=== PATIENT | male | born 1980 | race Hispanic/Latino ===

== ENCOUNTER 2017-06-01 18:54 | Emergency (ER) | payer OTHER ==
[~2017-06-01] VITALS: Ht 170.2 cm; Wt 115.9 kg
[2017-06-01 19:12] VITALS: BP 165/81; PULSE 78; RESP 22; O2SAT 96
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
[2017-06-01 20:52] VITALS: BP 142/96; PULSE 69; RESP 20; O2SAT 99
[2017-06-01] MEDS ORDERED: TRAM50TA2 PO (21:02)
== END 2017-06-01 21:12 | disposition home or self-care (01) ==
LOC: SED 18:54
DX: S23.41XA Sprain of ribs, initial encounter (principal); S16.1XXA Strain of muscle, fascia and tendon at neck level, initial encounter; S20.212A Contusion of left front wall of thorax, initial encounter; V43.62XA Car passenger injured in collision with other type car in traffic accident, initial encounter; Y93.89 Activity, other specified; Y92.410 Unspecified street and highway as the place of occurrence of the external cause; Y99.8 Other external cause status; I10 Essential (primary) hypertension; R51 Headache; Z88.0 Allergy status to penicillin
CPT/HCPCS: 71100; 96372; 99284; J1885